=== PATIENT | female | born 1955 | race African-American/Black ===

== ENCOUNTER → 2016-11-18 | Outpatient (CLI) | payer BC ==
--- NOTE | ~2016-11-18 | CR63 ---
[facility] A Service of [facility] & [facility] RADIOLOGY TEXT RESULTS PATIENT: VINCE ZHANG LOCATION: [facility] : 53 UNIT #: [id number] AGE: [address]: Catherine Garrett MD SEX: F ORDER DR: [id number] [facility] [address] [place], [place] [address] [id number] O MR#: [id number] Acc #: [id number] NAME: VINCE ZHANG : 1955 SEX: F STUDY DATE/TIME: 11/18/2016 16:57 UNIT: [facility] ROOM: STUDY DESCRIPTION: CR Chest 2 View Attending Physician: Mag Garrett M.D. Referring Physician: Mag Garrett M.D. Ordering Physician: Mag Garrett M.D. Primary Care Physician: Mag Garrett M.D. MEDICAL IMAGING REPORT This report is preliminary unless electronic signature is present EXAM PA and lateral chest radiograph. INDICATIONS Supraclavicular swelling and shortness of breath with activity for 2 weeks. FINDINGS Comparison made to prior exam from August 24, 2016. There is cardiomegaly although I do not see any evidence of vascular congestion. No pneumothorax or pleural effusion is seen. I do not see any definite acute infiltrates. No focal soft tissue abnormalities are seen. IMPRESSION Stable cardiomegaly without evidence of vascular congestion. Dictated by... Lyn Kirkpatrick M.D. THIS IS AN ELECTRONICALLY VERIFIED REPORT Lyn Kirkpatrick M.D. at 11/19/2016 2:43 PM AFF/bd TD: 11/19/2016 12:19 JOB #: [id number] MEDICAL IMAGING REPORT Page 1 of 1 COPY
== END | disposition home or self-care (01) ==
LOC: CRAD 16:34
DX: R22.1 Localized swelling, mass and lump, neck (principal); I51.7 Cardiomegaly
CPT/HCPCS: 71020